=== PATIENT | female | born 1950 | race Caucasian/White ===

== ENCOUNTER 2020-01-12 15:31 | Emergency (ER) | payer SELFPAY ==
[~2020-01-12] VITALS: Ht 165.1 cm; Wt 65.0 kg
[2020-01-12 15:33] VITALS: BP 142/73
== END 2020-01-12 17:15 | disposition home or self-care (01) ==
LOC: ER 15:31
DX: Z03.818 Encounter for observation for suspected exposure to other biological agents ruled out (principal); J20.9 Acute bronchitis, unspecified; E11.9 Type 2 diabetes mellitus without complications; F03.90 Unspecified dementia, unspecified severity, without behavioral disturbance, psychotic disturbance, mood disturbance, and anxiety; R03.0 Elevated blood-pressure reading, without diagnosis of hypertension; Z79.84 Long term (current) use of oral hypoglycemic drugs
CPT/HCPCS: 71045; 87635; 99283; C9803